=== PATIENT | male | born 1990 | race Caucasian/White ===

== ENCOUNTER 2024-02-26 19:47 | Outpatient (CLI) | payer MEDICAID, SELFPAY ==
--- OUTSIDE RECORDS SUMMARY | 2024-02-26 19:51 | XMS_ITS | Encounter Summary ---
Author Organization [place] Address [facility] [place] [address] Care Team Providers Care Gasoline Engine Assembler Name Role Phone Valentín Swan MD Primary Care Provider [phone] Yesenia Hatch PA-C Unavailable Yesenia Hatch PA-C Unavailable [phone] Stas Clay MD Unavailable [phone] Yesenia Hatch PA-C Unavailable [phone] Reason for Visit * Reason Onset Date Comments Call Back 08/13/2023 Encounter Details Date Type Department Care Team (Late st Contact Info) Description 08/13/2023 Telephone [facility] [address] [place] [address] Stas Clay MD [address] [address] Call Back Social History Tobacco Use Types Packs/Day Years Used Date Smoking Tobacco: Former Cigarettes Smokeless Tobacco: Never PHQ-2 Answer Date Recorded PHQ-2 Score 0 07/16/2023 Adolescent Education Answer Date Record ed Getting School Help Needed Not on file 07/16 Sex and Gender Information Value Date Recorded Sex Assigned at Not on file Gender Identity Not on file Sexual Orientation Not on file documented as of this encounter Miscellaneous Notes * Telephone Encounter - Giulia Hernandez - 08/13/2023 1:23 PM CST [facility] Phone Message May a detailed message be left on voicemail: yes Reason for Call: Other: Patient is calling to reschedule his missed cysto, per protocol TE must be sent, please call pt back logan to discuss Action Taken: Message routed to: Other: uro Travel Screening: Not Applicable OR TELECOMMUNICATIONS ENGINEER documented in this encounter Plan of Treatment Not on file documented as of this encounter Visit Diagnoses Not on filedocumented in this encounter Care Teams Gasoline Engine Assembler Relationship Specialty Start Date End Date Valentín Swan MD [facility] [id number] [place] [address] PCP - General Family Practice 08/29/18 Yesenia Hatch PA-C [address] [place] [address] Physician Document Management Analyst Urology 07/15/23 Yesenia Hatch PA-C [address] [place] [address] Assigned OBGYN Provider 07/19/23 Stas Clay MD [address] [place] [address] Assigned Surgical Provider 09/13/23 Yesenia Hatch PA-C [address] [place], [place] [address] Physician Document Management Analyst Urology 11/04/23 documented as of this encounter
--- OUTSIDE RECORDS SUMMARY | 2024-02-26 19:51 | XMS_ITS | Encounter Summary ---
Author Organization [place] Address [facility] [place] [address] Care Team Providers Care Lead Network Engineer Name Role Phone Valentín Swan MD Primary Care Provider [phone] Yesenia Hatch PA-C Unavailable Yesenia Hatch PA-C Unavailable [phone] Stas Clay MD Unavailable [phone] Yesenia Hatch PA-C Unavailable Reason for Visit * Reason Onset Date Comments Clinic Care Coordination - Follow-up 11/26/2023 Encounter Details Date Type Department Care Team (Late st Contact Info) Description 11/26/2023 Telephone [facility] [place] [address] [place] [address] Yesenia Hatch PA-C [address] [place], [place] [address] Clinic Care Coordination - Follow-up Social History Tobacco Use Types Packs/Day Years Used Date Smoking Tobacco: Former Cigarettes Smokeless Tobacco: Never PHQ-2 Answer Date Recorded PHQ-2 Score 2 11/19/2023 Adolescent Education Answer Date Record ed Getting School Help Needed Not on file 07/16 Sex and Gender Information Value Date Recorded Sex Assigned at Not on file Gender Identity Not on file Sexual Orientation Not on file documented as of this encounter Miscellaneous Notes * Telephone Encounter - Daisy Suh - 11/26/2023 12:49 PM CST ----- Message from Alem Alfaro sent at 11/25/2023 9:21 AM TALLIER ----- Regarding: Lab work Semen culture kit, chart picker in [place] PFPT eval EKTA 11/19/23 IER documented in this encounter Plan of Treatment Not on file documented as of this encounter Visit Diagnoses Not on filedocumented in this encounter Care Teams Lead Network Engineer Relationship Specialty Start Date End Date Valentín Swan MD [facility] [id number] [place] [address] PCP - General Family Practice 08/29/18 Yesenia Hatch PA-C [address] [place] [address] Physician Rig Builder Helper Urology 07/15/23 Yesenia Hatch PA-C [address] [place] [address] Assigned OBGYN Provider 07/19/23 Stas Clay MD [address] [place] [address] Assigned Surgical Provider 09/13/23 Yesenia Hatch PA-C [address] [place] [address] Physician Rig Builder Helper Urology 11/04/23 documented as of this encounter
--- OUTSIDE RECORDS SUMMARY | 2024-02-26 19:51 | XMS_ITS | Encounter Summary ---
Author Organization [place] Address [facility] [place] [address] Care Team Providers Care Spring Maker Name Role Phone Valentín Swan MD Primary Care Provider [phone] Yesenia Hatch-C Unavailable [phone] Yesenia Hatch-C Unavailable [phone] Stas Clay MD Unavailable [phone] Yesenia Hatch PA-C Unavailable Reason for Visit * Reason Onset Date Comments Appointment 11/07/2023 Tried calling pt to let pt know Yesenia MORAC needed to reschedule due to being stuck at hospital. LVM with scheduling number Encounter Details Date Type Department Care Team (Late st Contact Info) Description 11/07/2023 Telephone [facility] [place] [address] [place] [address] Yesenia Hatch PAReginaldC [address] [place], [place] [address] Appointment (Tried calling pt to let pt know Yesenia MORAC needed to reschedule due to being stuck at hospital. LVM with scheduling number) Social History Tobacco Use Types Packs/Day Years [...] encounter Miscellaneous Notes * Telephone Encounter - Charleen Curran - 11/07/2023 9:54 AM CST Tried calling pt to let pt know Yesenia Hatch PA-C needed to reschedule due to being stuck at hospital. LVM with scheduling number S FURNACE OPERATOR documented in this encounter Plan of Treatment Not on file documented as of this encounter Visit Diagnoses Not on filedocumented in this encounter Care Teams Spring Maker Relationship Specialty Start Date End Date Valentín Swan MD [facility] [id number] [place] [address] PCP - General Family Practice 08/29/18 Yesenia Hatch PA-C [address] [place] [address] Physician Airport Security Screener Urology 07/15/23 Yesenia Hatch PA-C [address] [place] [address] Assigned OBGYN Provider 07/19/23 Stas Clay MD [address] [place] [address] Assigned Surgical Provider 09/13/23 Yesenia Hatch PA-C [address] [place] [address] Physician Airport Security Screener Urology 11/04/23 documented as of this encounter
--- OUTSIDE RECORDS SUMMARY | 2024-02-26 19:51 | XMS_ITS | Encounter Summary ---
Author Organization [place] Address [facility] [place] [address] Care Team Providers Care Fire Tender Name Role Phone Valentín Swan MD Primary Care Provider [phone] Yesenia SchwartzC Unavailable Yesenia SchwartzC Unavailable [phone] Stas Clay MD Unavailable [phone] Yesenia Schwartz-C Unavailable [phone] Reason for Visit * Reason Comments RECHECK Encounter Details Date Type Department Care Team (Late st Contact Info) Description 11/19/2023 2:00 PM PLAYER SERVICES REPRESENTATIVE Virtual Visit [facility] Urology [facility] [place] [address] [place] [address] Yesenia Schwartz PA-C [address] [place] [address] Scrotal pain (Primary Dx); Lower urinary tract symptoms Social History Tobacco Use Types Packs/Day Years Used Date Smoking Tobacco: Former Cigarettes Smokeless Tobacco: Never Tobacco Cessation:Counseling Given: Not Answered PHQ-2 Answer Date Recorded PHQ-2 Score 2 11/19/2023 Adolescent Education Answer Date Record ed Getting School Help Needed Not on file 07/16 Sex and Gender Information Value Date Recorded Sex Assigned at Not on file Gender Identity Not on file Sexual Orientation Not on file documented as of this encounter Patient Instructions * Patient Instructions* Yesenia Schwartz PA-C - 11/19/2023 2:00 PM PLAYER SERVICES REPRESENTATIVE Semen culture Please see one of the dedicated pelvic floor physical therapists ([facility] [phone]). Please be aware that coverage of these services is subject to the terms and limitations of your health insurance plan. Call member services at your health plan with any benefit or coverage questions. Please bring the following to your appointment: *Your personal calendar for scheduling future appointments *Comfortable clothing ER SERVICES REPRESENTATIVE documented in this encounter Progress Notes * Yesenia Schwartz PA-C - 11/19/2023 2:00 PM CST Virtual Visit Details Type of service: Video Visit Originating Location (pt. Location): Car Distant Location (provider location): On-site Platform used for Video Visit: (In)Touch Network Start time: 2:00pm End time:2:13pm CC: Hematuria. HPI: It is a pleasure to see Mr. Darren Villarreal, a pleasant 33 year old male seen today via billable video visit, in follow-up. Initially seen in 07/2023 for intermittent gross hematuria. Also has some swelling in the scrotum and urinary frequency. Can have hesitancy and sense of weak stream. Former smoking history. He currently denies any dysuria, pyuria, hesitancy, intermittency, feelingsof incomplete emptying, or any recent history of urinary tract infections or stones. Had a virtuwell visit (cannot see records) and treated with Doxy for epididymitis. PSA--none Hematuria Risk Factors: Age >40: no Smoking history: yes Occupational exposure to chemicals or dyes (ie, benzenes, aromatic amines): no History of urologic disorder or disease: no History of irritative voiding symptoms: no History of urinary tract infection: no Analgesic abuse: no History of pelvic irradiation: no 09/08/23: Normal cysto with Dr. Clay. Normal scrotal US Normal CT Urogram TODAY 11/19/23 Some days can be difficult to urinate, bladder pressure chandler with scrotal pain. Feels a blockage per say with ejaculation Drinks pop (2 cans per day), good water. No ETOH Bowels are regular. No past medical history on file. No past surgical history on file. Current Outpatient Medications Medication Sig Dispense Refill HYDROcodone-acetaminophen 5-325 MG per tablet Take 1-2 tablets by mouth every 4 hours as needed forpain. (Patient not taking: Reported on 08/29/2018) 15 tablet 0 lisdexamfetamine (VYVANSE) 60 MG capsule Take 60 mg by mouth (Patient not taking: Reported on 07/16/2023) oxyCODONE-acetaminophen (PERCOCET) 5-325 MG per tablet Take 1 tablet by mouth every 4 hours as needed for pain (Patient not taking: Reported on 08/29/2018) 20 tablet 0 sildenafil (VIAGRA) 100 MG tablet Take 100 mg by mouth (Patient not taking: Reported on 07/16/2023) sulfamethoxazole-trimethoprim (BACTRIM) 400-80 MG tablet Take 1 tablet by mouth 2 times daily (Patient not taking: Reported on 09/08/2023) 20 tablet 0 Allergies Allergen Reactions Amoxicillin FAMILY HISTORY: There is no reported history of genitourinary carcinoma. There is no history of urolithiasis. Social History Socioeconomic History Marital status: Single Spouse name: Not on file Number of children: Not on file Years of education: Not on file Highest education level: Not on file Occupational History Not on file Tobacco Use Smoking status: Former Types: Cigarettes Smokeless tobacco: Never Substance and Sexual Activity Alcohol use: Not on file Drug use: Not on file Sexual activity: Not on file Other Topics Concern Not on file Social History Narrative Not on file Social Determinants of Health Financial Resource Strain: Not on file Food Insecurity: Not on file Transportation Needs: Not on file Physical Activity: Not on file Stress: Not on file Social Connections: Not on file Interpersonal Safety: Not on file Housing Stability: Not on file ROS: A 5 point ROS was obtained and otherwise negative except for that outlined above in the HPI. PHYSICAL EXAM: There were no vitals filed for this visit. PSYCH: NAD EYES: EOMI NEURO: AAO x3 IMAGING: none ASSESSMENT and PLAN: Mr. Darren Villarrael is a pleasant 33 year old male with benign gross hematuria, scrotal pain, LUTS,ejaculatory issue. -Semen culture kit - CT and US reviewed with him and reassuring - limit irritants - PFPT eval 30 minutes spent on the date of the encounter doing chart review, review of outside records, reviewof test results, interpretation of tests, patient visit and documentation. Yesenia Schwartz PA-C [facility] Urology ER SERVICES REPRESENTATIVE documented in this encounter Nursing Notes * Samra Palomares - 11/19/2023 2:00 PM CST Is the patient currently in the state of [place]? YES Visit mode:VIDEO If the visit is dropped, the patient can be reconnected by: VIDEO VISIT: Text to cell phone: Telephone Information: Will anyone else be joining the visit? NO (If patient encounters technical issues they should call [phone] How would you like to obtain your AVS? MyChart Are changes needed to the allergy or medication list? No Reason for visit: RECHECK Samra Lyndon [facility] ER SERVICES REPRESENTATIVE documented in this encounter Miscellaneous Notes * Addendum Note - Yesenia Schawrtz PA-C - 11/19/2023 2:00 PM CSTAddended by: YESENIA SCHWARTZ on: 11/19/2023 02:24 PM Modules accepted: Orders ER SERVICES REPRESENTATIVE documented in this encounter Plan of Treatment Scheduled Orders Name Type Priority Associated Diagnoses Orde r Schedule Semen Aerobic Bacterial Culture Routine Without Gram Stain Microbiology Routine Scrotal pain Lower urinary tract symptoms Expected: 11/26/2023 (Approximate), Expires: 11/19/2024 documented as of this encounter Visit Diagnoses Diagnosis Scrotal pain- Primary Unspecified disorder of male genital organs Lower urinary tract symptoms Other symptoms involving urinary system documented in this encounter Care Teams Fire Tender Relationship Specialty Start Date End Date Valentín Swan MD [facility] [address] [place] [address] PCP - General Family Practice 08/29/18 Yesenia Schwartz PA-C [address] [place] [address] Physician Test Clerk Urology 07/15/23 Yesenia Schwartz PA-C [address] [place] [address] Assigned OBGYN Provider 07/19/23 Stas Clay MD [address] [place], [place] [address] Assigned Surgical Provider 09/13/23 Yesenia Schwartz PA-C [address] [place] [address] Physician Test Clerk Urology 11/04/23 documented as of this encounter
--- OUTSIDE RECORDS SUMMARY | 2024-02-26 19:51 | XMS_ITS | Clinical Summary ---
Author Organization [place] Address [address] [place] [address] Care Team Providers Care Canvas Goods Supervisor Name Role Phone Valentín Swan MD Primary Care Provider [phone] Yesenia Hatch PA-C Unavailable [phone] Yesenia Hatch PA-C Unavailable [phone] Stas Clay MD Unavailable [phone] Yesenia Hatch PA-C Unavailable Allergies Active Allergy Reactions Criticality Noted Date Comments Amoxicillin 03/27/2012 Medications Medication Sig Dispensed Refills Start Date End Date Status HYDROcodone-acetami nophen 5-325 MG per tablet Take 1-2 tablets by mouth every 4 hours as needed for pain. 15 tablet 0 03/27/2012 Active Additional Information Patient not taking.Reported on 08/29/2018 oxyCODONE-acetamino phen (PERCOCET) 5-325 MG per tablet Take 1 tablet by mouth every 4 hours as needed for pain 20 tablet 07/22/2018 Active Additional Information Patient not taking.Reported on 08/29/2018 lisdexamfetamine (VYVANSE) 60 MG capsule Take 60 mg by mouth 06/07/2016 Activ e sildenafil (VIAGRA) 100 MG tablet Take 100 mg by mouth 06/07/2016 Active sulfamethoxazole-tr imethoprim (BACTRIM) 400-80 MG tabletIndications:S crotal swelling Take 1 tablet by mouth 2 times daily 20 tablet 07/16/2023 Active Additional Information Patient not taking.Reported on 09/08/2023 Active Problems Problem Noted Date Diagnosed Date ADD (attention deficit disorder) 06/07/2016 Drug abuse 06/07/2016 Bilateral hearing loss 11/07/2015 Depression with anxiety 11/04/2015 Insomnia 11/04/2015 Routine health maintenance 04/02/2010 Overview: Overview: Last cpx-05/09 Immunizations Name Administration Dates Next Due Rabies-Intradermal 04/10/2012,04/03/2012, 012 Social History Tobacco Use Types Packs/Day Years [...] on file Sexual Orientation Not on file Last Filed Vital Signs Vital Sign Reading Time Taken Comments Blood Pressure 142/90 09/08/2023 8:40 AM PROGRAMMING DEVELOPMENT PROJECT MANAGER Pulse 80 08/29/2018 11:41 AM PROGRAMMING DEVELOPMENT PROJECT MANAGER Temperature 36.7 ??C (98 ??F) 08/29/2018 11:41 AM PROGRAMMING DEVELOPMENT PROJECT MANAGER Respiratory Rate 18 07/22/2018 7:40 PM CDT Oxygen Saturation 100% 08/29/2018 11:41 AM PROGRAMMING DEVELOPMENT PROJECT MANAGER Inhaled Oxygen Concentration - - Weight 79.4 kg (175 lb) 09/08/2023 8:40 AM PROGRAMMING DEVELOPMENT PROJECT MANAGER Height 182.9 cm (6') 09/08/2023 8:40 AM PROGRAMMING DEVELOPMENT PROJECT MANAGER Body Mass Index 23.73 09/08/2023 8:40 AM PROGRAMMING DEVELOPMENT PROJECT MANAGER Plan of Treatment Health Maintenance Due Date Last Done Comments ADVANCE CARE PLANNING 1988 ANNUAL REVIEW OF HM ORDERS 1988 GLUCOSE 1988 HIV SCREENING 2003 HEPATITIS C SCREENING 2006 YEARLY PREVENTIVE VISIT 08/04/2021 08/04/2020 DTAP/TDAP/TD IMMUNIZATION (7 - Td or Tdap) 03/20/2022 03/20/2012, 04/24/2000, 04/11/1993, Additional history exists COVID-19 Vaccine ( season) 2023 INFLUENZA VACCINE (Season Ended) 2024 IPV IMMUNIZATION Completed 04/05/1993, , 01/19/1989, Additional history exists HEPATITIS B IMMUNIZATION Completed 001, 10/22/2000, 05/27/2000, Additional history exists PHQ-2 (once per calendar year) Completed 11/19/2023, 07/16/2023 HPV IMMUNIZATION Aged Out No longer e ligible based on patient's age to complete this topic MENINGITIS IMMUNIZATION Aged Out No l onger eligible based on patient's age to complete this topic Pneumococcal Vaccine: Pediatrics (0 to 5 Years) and At-Risk Patients (6 to 64 Years) Aged Out No longer eligible based on patient's age to complete this topic RSV MONOCLONAL ANTIBODY Aged Out No l onger eligible based on patient's age to complete this topic Care Teams Canvas Goods Supervisor Relationship Specialty Start Date End Date Valentín Swan MD [facility] [address] [place] [address] PCP - General Family Practice 08/29/18 Yesenia Hatch PA-C [address] [place] [address] Physician Telephone Operator Receptionist Urology 07/15/23 Yesenia Hatch PA-C [address] [place] [address] Assigned OBGYN Provider 07/19/23 Stas Clay MD [address] [place] [address] Assigned Surgical Provider 09/13/23 Yesenia Hatch PA-C [address] [place] [address] Physician Telephone Operator Receptionist Urology 11/04/23
--- OUTSIDE RECORDS SUMMARY | 2024-02-26 19:51 | XMS_ITS | Referral Summary ---
Author Organization [place] Address [address] [place] [address] Care Team Providers Care Transverse Abdominal Muscle Surgeon Name Role Phone Valentín Swan MD Primary Care Provider [phone] Yesenia Hatch PA-C Unavailable [phone] Yesenia Hatch PA-C Unavailable [phone] Stas Clay MD Unavailable [phone] Yesenia Hatch PA-C Unavailable Allergies Active Allergy [...] Comments Blood Pressure 142/90 09/08/2023 8:40 AM PHYSICIAN OFFICE SECRETARY Pulse 80 08/29/2018 11:41 AM PHYSICIAN OFFICE SECRETARY Temperature 36.7 ??C (98 ??F) 08/29/2018 11:41 AM PHYSICIAN OFFICE SECRETARY Respiratory Rate 18 07/22/2018 7:40 PM CDT Oxygen Saturation 100% 08/29/2018 11:41 AM PHYSICIAN OFFICE SECRETARY Inhaled Oxygen Concentration - - Weight 79.4 kg (175 lb) 09/08/2023 8:40 AM PHYSICIAN OFFICE SECRETARY Height 182.9 cm (6') 09/08/2023 8:40 AM PHYSICIAN OFFICE SECRETARY Body Mass Index 23.73 09/08/2023 8:40 AM PHYSICIAN OFFICE SECRETARY Plan of Treatment Not on file Care Teams Transverse Abdominal Muscle Surgeon Relationship Specialty Start Date End Date Valentín Swan MD [facility] [address] [place] [address] PCP - General Family Practice 08/29/18 Yesenia Hatch PA-C [address] [place] [address] Physician Mens Locker Room Attendant Urology 07/15/23 Yesenia Hatch PA-C [address] [place] [address] Assigned OBGYN Provider 07/19/23 Stas Clay MD [address] [place] [address] Assigned Surgical Provider 09/13/23 Yesenia Hatch PA-C [address] [place] [address] Physician Mens Locker Room Attendant Urology 11/04/23
--- OUTSIDE RECORDS SUMMARY | 2024-02-26 19:51 | XMS_ITS | Clinical Summary ---
Author Organization [facility] Address [place], [place] [address] Care Team Providers Care Cull Grader Name Role Phone Valentín Swan MD Primary Care Provider Allergies Active Allergy Reactions Criticality Noted Date Comments Amoxicillin 04/02/2010 Medications No known medications Active Problems Problem Noted Date Diagnosed Date Methamphetamine abuse, + tox 02/18 and 06/21, no n arcotics! 06/07/2016 ADD (attention deficit disorder) 06/07/2016 Bilateral hearing loss 11/07/2015 Depression with anxiety 11/04/2015 Insomnia 11/04/2015 Routine health maintenance 04/02/2010 Overview: Last cpx-05/09 Allergic rhinitis Immunizations Name Administration Dates Next Due DTaP 04/11/1993, 0,1988,1988,08/19 HIB PRP-T (ActHIB,Hiberix) 01/02/1990,1988 ,1988,1988 Hepatitis B (Adult) 10/22/2000,05/27/2000,1999 Hepatitis B (Peds) 10/22/2000,05/27/2000, 000 Inactivated Polio Vaccine 04/05/1993,01/02/1990, 01/19/1989,1988 MMR 04/24/2000,10/21/1989 Rabies Vaccine 04/10/2012,04/03/2012,03/27/2012 Td (Age >=7 Years) 04/24/2000 Tdap 03/20/2012 Family History Medical History Relation Name Comments Psychiatric illness Maternal Grandfather Psychiatric illness Maternal Grandmother Hypertension Mother Psychiatric illness Paternal Grandfather Psychiatric illness Paternal Grandmother Relation Name Status Comments Maternal Grandfather Maternal Grandmother Mother Paternal Grandfather Paternal Grandmother Social History Tobacco Use Types Packs/Day Years Used Date Smoking Tobacco: Former Cigarettes 0.5 22 1 999 - 2020 Smokeless Tobacco: Never Tobacco Cessation:Counseling Given: Not Answered Comments:stopped 07/2020 Alcohol Use Standard Drinks/Week Comments Yes 0 (1 standard drink = 0.6 oz pur e alcohol) rarely PHQ-2 Answer Date Recorded PHQ-2 TOTAL SCORE 0 12/14/2021 [facility] - Occupational Stress Questionnaire Answer Date Recorded Do you feel stress - tense, restless, nervous, or anxious, or unable to sleep at night because your mind is troubled all the time - these days? Not at all 08/04/2020 Social Connections Answer Date Recorded Frequency of Communication with Friends and Fami ly Not on file 04/05/2023 Financial Resource Strain Answer Date R ecorded Difficulty of Paying Living Expenses 3 03/26/2022 Difficulty of Paying Living Expenses Not on file 03/26/2022 Food Insecurity Answer Date Recorded Worried About Running Out of Food in the Last Ye ar 1 03/26/2022 Transportation Needs Answer Date Record ed Lack of Transportation (Medical) 1 03/26/2022 Housing Stability Answer Date Recorded Unable to Pay for Housing in the Last Year 1 03/26/2022 Sex and Gender Information Value Date Recorded Sex Assigned at Male 09/28/2020 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 Gender Identity Male 09/28/2020 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 Sexual Orientation Straight 09/28/2020 6: 44 PM 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 Obstetrics History Last Filed Vital Signs Vital Sign Reading Time Taken Comments Blood Pressure 120/68 05/28/2023 2:17 PM CDT Pulse 95 03/26/2022 1:36 PM CDT Temperature 36.8 ??C (98.3 ??F) 05/28/2023 2:17 PM CD T Respiratory Rate 16 08/04/2020 8:51 AM CDT Oxygen Saturation 99% 03/20/2012 6:03 PM CDT Inhaled Oxygen Concentration - - Weight 81.2 kg (179 lb) 05/28/2023 2:17 PM CDT Height 180.3 cm (5' 11) 05/28/2023 2:17 PM CDT Body Mass Index 24.97 05/28/2023 2:17 PM CDT Plan of Treatment Health Maintenance Due Date Last Done Comments Hepatitis C screening for age 18-79 2006 Tetanus booster 03/20/2022 03/20/2012, 04/24/2000 COVID-19 vaccine series (2022- season) 2023 Lipids for age 35-44 2023 06/07/2016, 04/03/20 10 BMI (ht and wt on same day) for age 18+ 05/28/2024 05/28/2023, 12/14/2021, 08/04/2020, Additional history exists Depression screening for age 12+ 05/28/2024 12/14/2021, 10/18/2020, 08/04/2020, Additional history exists Postponed from 12/14/2022 (Patient discretion) Influenza for age 9-49 06/06/2024 Tdap Completed 03/20/2012 HIV for age 15-65 Completed 03/26/2022 Pneumococcal series for age 6-64 Aged Out No longer eligible based on patient's age to complete this topic Procedures Procedure Name Priority Date/Time Associated Diagnosis Comments ANTI HIV 1/2 Routine 03/26/2022 2:22 PM CDT Penile discharge LIPID PANEL W REFLEX MEASURED LDL Routine 06/07/2016 12:56 PM CDT Routine health maintenance from Last 3 Months or Most Recently Relevant to Health Maintenance Results * ANTI HIV 1/2 (03/26/2022 2:22 PM CDT) HIV-1/HIV-2 ANTIBODY Non-Reacti ve Non-Reacti ve 03/26/2022 7:37 PM CDT [facility] Comment:HIV-1 p24 and HIV-1/ HIV-2 Ab not detected. Blood BLOOD SPECIMEN / Unknown Venipuncture / Unknown 03/26/2022 2:22 PM CDT 03/26/2022 2:25 PM CDT Darren Vivar MD SEND [facility] [address] [place] [address], [place] * (ABNORMAL) LIPID PANEL W REFLEX MEASURED LDL (06/07/2016 12:56 PM CDT) CHOLESTEROL,TOTAL 183 100 - 199 mg/dL 06/07/2016 7:52 PM CDT [facility] TRIGLYCERIDES 152(H) <150 mg/dL 06/07/2016 7:52 PM CDT [facility] HDL CHOLESTEROL 51 >40 mg/dL 06/07/2016 7:52 PM CDT [facility] NON-HDL CHOLESTEROL 132 <145 mg/dl 06/07/2016 7:52 PM CDT [facility] CHOL/HDL RATIO 3.59 <4.50 06/07/2016 7:52 PM CDT [facility] LDL CHOLESTEROL 102 <=130 mg/dL 06/07/2016 7:52 PM CDT [facility] PATIENT STATUS FASTING 06/07/2016 7:52 PM CDT [facility] Blood BLOOD SPECIMEN / Unknown Venipuncture / Unknown 06/07/2016 12:56 PM CDT 06/07/2016 12:56 PM CDT Valentín Swan MD CHEMISTRY [facility] [address] [place] [address], from Last 3 Months or Most Recently Relevant to Health Maintenance Care Teams Cull Grader Relationship Specialty Start [place] [address] [place] [address] PCP - General Family Practice 05/24/16
[2024-02-26 21:23] LABS: Amphetamine Screen Urine POSITIVE (Negative); Barbiturate Screen Urine Negative (Negative); Benzodiazepines Screen Urine Negative (Negative); Cannabinoid Screen Urine Negative (Negative); Cocaine Screen Urine Negative (Negative); Methadone Screen Urine Negative (Negative); Methamphetamines Screen Urine POSITIVE (Negative); Opiate Screen Urine Negative (Negative); Oxycodone Screen Urine Negative (Negative); Phencyclidine Screen Urine Negative (Negative); Tricyclic Antidepressant Urine Negative (Negative)
== END 2024-02-26 19:48 | disposition home or self-care (01) ==
PROVIDERS: Visit Provider Physician Assistant
DX: R45.4 Irritability and anger (principal)
CPT/HCPCS: 80306